=== PATIENT | male | born 1950 | race Caucasian/White ===

== ENCOUNTER 2018-01-22 03:14 | Observation (INO) ==
[2018-01-22] MEDS ORDERED: Aspirin 81 MG TAB.CHEW PO ONE (03:19)
[2018-01-22 03:39] LABS: Basophils # 0.1 K/mcL (0.0-0.2); Basophils % 0.4 %; Eosinophils # 0.1 K/mcL (0.0-0.6); Eosinophils % 0.9 %; Hematocrit 44.2 % (37.5-50.1); Immature Granulocytes % 0.3 % (0-4); Lymphocytes # 1.8 K/mcL (0.6-4.6); Lymphocytes % 13.1 %; Mean Corpuscular HGB Conc 33.9 g/dL (31.6-35.5); Mean Corpuscular Hemoglobin 29.1 pg (28.0-33.3); Mean Corpuscular Volume 85.8 fL (83.0-100.0); Mean Platelet Volume 9.6 fL (9.4-12.4); Monocytes % 7.2 %; Neutrophils # 10.6 K/mcL (1.6-8.9); Platelet Count 202 K/mcL (140-400); Red Blood Count 5.15 M/mcL (4.19-5.50); Red Cell Distribution Width 13.3 % (11.5-14.5); Segmented Neutrophils % 78.1 %
[2018-01-22 04:01] LABS: Troponin I < 0.03 ng/mL (< 0.04)
[2018-01-22 04:02] LABS: Alanine Aminotransferase 7 Units/L (7-52); Albumin 4.4 g/dL (3.5-5.7); Albumin/Globulin Ratio 1.8 (1.1-2.2); Alkaline Phosphatase 50 Units/L (34-104); Aspartate Amino Transferase 10 Units/L (13-39); BUN/Creatinine Ratio 12 (6-26); Bilirubin,Direct 0.2 mg/dL (0.0-0.2); Bilirubin,Indirect 0.3 mg/dL (0.0-1.2); Bilirubin,Total 0.5 mg/dL (0.3-1.0); Blood Urea Nitrogen 11 mg/dL (8-23); Calcium 9.4 mg/dL (8.6-10.3); Carbon Dioxide 24 mEq/L (23-29); Chloride 106 mEq/L (98-107); Globulin 2.5 g/dL (2.4-3.5); Glucose 119 mg/dL (70-105); Lipase 10 Units/L (11-82); Osmolality,Calculated 283 (280-300); Potassium 4.3 mEq/L (3.5-5.1); Sodium 136 mEq/L (136-145); Total Protein 6.9 g/dL (6.4-8.9); eGFR For Non-African Americans > 60 (> 60)
--- NOTE | 2018-01-22 04:06 | Emergency Department Note ---
Disposition Clinical Impression: Shortness of breath, Left flank pain Chest pain Qualifiers: Chest pain type: unspecified Qualified Code(s): R07.9 - Chest pain, unspecified Disposition: Admitted As Inpatient Condition: Good Referrals: NONE,PCP [Primary Care Provider] - Forms: ED Satisfaction Letter General Adult HPI - General Chief complaint: ED Chest Pain Stated complaint: Chest pain, SOB, Abd pain Time Seen by Provider: 01/22/18 03:17 Source: patient, family Limitations: no limitations Nursing Notes Reviewed: Yes Vital Signs Reviewed: Yes - History of Present Illness HPI Narrative: 67-year-old male with significant past medical history of hypertension, hyperlipidemia and diabetes presenting to the emergency department chief complaint of chest pain, shortness of breath and left flank pain. Patient states he was recently admitted at [facility] for cardiac workup. He had EKGs and stress test completed but no catheterization. Patient states since he was discharged he has had multiple episodes of chest pain and shortness of breath. This evening the episodes started around 8 PM. He describes substernal chest pressure. Does not radiate. Does cause nausea and diaphoresis. Patient denies taking any medications for this at home. Patient denies any previous cardiac history or stents. Denies being on any anticoagulation. Patient states over the past few months he has also had increasing shortness of breath. Has been worsening acutely over the past 1-2 weeks. Denies any history of COPD or asthma. Patient also states he is having left flank pain. He states he feels something hard there. He feels that his abdomen is more distended than normal. Denies any vomiting or diarrhea. Pain Scale: 8 - Related Data Allergies Allergy/AdvReac Type Severity Reaction Status Date / Time No Known Allergies Allergy Verified 01/22/18 03:33 All systems ED: reviewed and negative except as stated. Constitutional: Reports: fever (Subjective). Denies: chills Eyes: Reports: as per HPI ENT ED: Reports: as per HPI Cardiovascular: Reports: chest pain. Denies: palpitations, dyspnea on exertion Respiratory: Reports: cough, dyspnea. Denies: wheezes, hemoptysis Gastrointestinal: Reports: abdominal pain. Denies: vomiting, diarrhea Genitourinary: Reports: as per HPI Musculoskeletal: Reports: as per HPI Integumentary: Reports: as per HPI Neurological: Denies: weakness, numbness, paresthesias Psychiatric: Reports: as per HPI Endocrine: Reports: as per HPI Hematological/Lymphatic: Reports: as per HPI Allergic/Immunologic: Reports: as per HPI Past Medical History - Past Medical History Attestation: Yes The following information was validated with the patient. Medical history: Reports: CVA, diabetes, hyperlipidemia, hypertension Psychiatric history: Reports: no psych history - Social History Smoking Status: Former smoker Alcohol use: Reports: none Drug use: Reports: none Physical Exam - General Limitations: no limitations General appearance: alert, in no apparent distress - Head Head exam: atraumatic, normocephalic, normal inspection - Eye Eye exam: Present: normal appearance. Absent: scleral icterus, conjunctival injection - ENT ENT exam: normal exam, mucous membranes moist - Neck Neck exam: Present: normal inspection, full ROM. Absent: tenderness, meningismus - Chest Chest inspection: Present: normal inspection, symmetric chest wall rise. Absent : tenderness, rash - Respiratory Respiratory exam: Present: other (Coarse breath sounds throughout) - Cardiovascular Cardiovascular exam: Present: regular rate, normal rhythm, normal heart sounds - Abdominal Exam Abdominal exam: Present: soft, Non-Tender. Absent: guarding, rebound, rigidity - Extremities Exam Extremities exam: Present: normal inspection, full ROM - Neurological Exam Neurological exam: Present: alert, oriented X3 - Psychiatric Psychiatric exam: Present: normal affect, normal mood - Skin Skin exam: Present: warm, intact Course Course Narrative: 67-year-old male presenting with chest pain and shortness of breath. Patient is complaining of left flank pain. On physical exam patient does have a hard and mobile area in the left flank but otherwise no abnormalities. Physical exam otherwise benign. He is alert and oriented 3 in the room in stable vital signs. We will obtain a chest pain workup including CBC, CMP, lipase, troponin , EKG and chest x-ray. Due to patient's abdominal pain was also obtain a CT of abdomen and pelvis. Disposition pending results. Patient agrees with this plan. - Reevaluation(s) Reevaluation #1: Patient laboratory analysis benign. Chest x-ray within normal limits. Patient given a nitroglycerin trial. After 2 sublingual nitros chest pressure completely resolved. Upon ambulation of the patient became hypoxic to 91% and then when he got to the room he dropped down to 87%. Patient has no history of asthma or COPD. Due to patient's hypoxia and chest pain we will admit him for further evaluation. Patient is alert and oriented 3 in the room with stable vital signs. Patient agrees with this plan. I spoke with the hospitalist inspection supervisor Dr. Allen to agrees to accept the patient at this time. Vital Signs Temperature 100.1 F H 01/22/18 03:18 Pulse Rate 93 01/22/18 03:18 Respiratory Rate 26 01/22/18 03:18 Blood Pressure 158/92 01/22/18 03:18 O2 Sat by Pulse Oximetry 92 01/22/18 03:18 Temperature 100.1 F H 01/22/18 03:18 Pulse Rate 99 01/22/18 05:03 Respiratory Rate 19 01/22/18 05:03 Blood Pressure 112/91 01/22/18 05:03 O2 Sat by Pulse Oximetry 92 01/22/18 05:03 Oxygen Delivery Oxygen Delivery Nasal Cannula Medical Decision Making - Lab Data Result diagrams: 01/22/18 03:30 01/22/18 03:30 Lab Results 01/22/18 01/22/18 01/22/18 Range/Units 03:21 03:30 03:30 WBC 13.6 H (4.3-11.1) K/mcL RBC 5.15 (4.19-5.50) M/mcL Hgb 15.0 (12.9-16.9) g/dL Hct 44.2 (37.5-50.1) % MCV 85.8 (83.0-100.0) fL MCH 29.1 (28.0-33.3) pg MCHC 33.9 (31.6-35.5) g/dL RDW 13.3 (11.5-14.5) % Plt Count 202 (140-400) K/mcL MPV 9.6 (9.4-12.4) fL Immature Gran % 0.3 (0-4) % Seg Neutrophils % 78.1 % Lymphocytes % 13.1 % Monocytes % 7.2 % Eosinophils % 0.9 % Basophils % 0.4 % Neutrophils # 10.6 H (1.6-8.9) K/mcL Lymphocytes # 1.8 (0.6-4.6) K/mcL Monocytes # 1.0 (0.0-1.3) K/mcL Eosinophils # 0.1 (0.0-0.6) K/mcL Basophils # 0.1 (0.0-0.2) K/mcL Sodium 136 (136-145) mEq/L Potassium 4.3 (3.5-5.1) mEq/L Chloride 106 (98-107) mEq/L Carbon Dioxide 24 (23-29) mEq/L BUN 11 (8-23) mg/dL Creatinine 0.92 (0.70-1.30) mg/dL Est GFR ( Amer) > 60 (> 60) Est GFR (Non-Af Amer) > 60 (> 60) BUN/Creatinine Ratio 12 (6-26) Glucose 119 H (70-105) mg/dL Calculated Osmolality 283 (280-300) Calcium 9.4 (8.6-10.3) mg/dL Total Bilirubin 0.5 (0.3-1.0) mg/dL Direct Bilirubin 0.2 (0.0-0.2) mg/dL Indirect Bilirubin 0.3 (0.0-1.2) mg/dL AST 10 L (13-39) Units/L ALT 7 (7-52) Units/L Alkaline Phosphatase 50 (34-104) Units/L Troponin I < 0.03 (< 0.04) ng/mL B-Natriuretic Peptide 102 H (Less than 100) pg/mL Serum Total Protein 6.9 (6.4-8.9) g/dL Albumin 4.4 (3.5-5.7) g/dL Globulin 2.5 (2.4-3.5) g/dL Albumin/Globulin Ratio 1.8 (1.1-2.2) Lipase 10 L (11-82) Units/L - EKG Data EKG #1 EKG attestation: Yes I reviewed and interpreted this EKG. EKG results narrative: Sinus rhythm. 91 bpm. SD interval 153, QRS 96, QTC 438. No signs of acute ST segment elevation or ischemia.
[2018-01-22] MEDS: Nitroglycerin 0.4 MG TAB.SUBL SL PRN ×2 (04:49→04:55)
--- NOTE | 2018-01-22 05:40 | Emergency Department Note ---
Disposition Clinical Impression: Shortness of breath, Left flank pain Chest pain Qualifiers: Chest pain type: unspecified Qualified Code(s): R07.9 - Chest pain, unspecified Disposition: Admitted As Inpatient Condition: Good General Adult HPI - General Chief complaint: ED Chest Pain Stated complaint: Chest pain, SOB, Abd pain Time Seen by Provider: 01/22/18 03:17 Source: patient, family Mode of arrival: wheelchair Limitations: no limitations Nursing Notes Reviewed: Yes Vital Signs Reviewed: Yes - History of Present Illness Pain Scale: 8 - Related Data Allergies Allergy/AdvReac Type Severity Reaction Status Date / Time No Known Allergies Allergy Verified 01/22/18 03:33 Constitutional: Reports: fever (Subjective). Denies: chills Eyes: Reports: as per HPI ENT ED: Reports: as per HPI Cardiovascular: Reports: chest pain. Denies: palpitations, dyspnea on exertion Respiratory: Reports: cough, dyspnea. Denies: wheezes, hemoptysis Gastrointestinal: Reports: abdominal pain. Denies: vomiting, diarrhea Genitourinary: Reports: as per HPI Musculoskeletal: Reports: as per HPI Integumentary: Reports: as per HPI Neurological: Denies: weakness, numbness, paresthesias Psychiatric: Reports: as per HPI Endocrine: Reports: as per HPI Hematological/Lymphatic: Reports: as per HPI Allergic/Immunologic: Reports: as per HPI Past Medical History - Past Medical History Medical history: Reports: CVA, diabetes, hyperlipidemia, hypertension Psychiatric history: Reports: no psych history - Social History Smoking Status: Former smoker Alcohol use: Reports: none Drug use: Reports: none Physical Exam - General Limitations: no limitations General appearance: alert, in no apparent distress Course Vital Signs Temperature 100.1 F H 01/22/18 03:18 Pulse Rate 93 01/22/18 03:18 Respiratory Rate 26 01/22/18 03:18 Blood Pressure 158/92 01/22/18 03:18 O2 Sat by Pulse Oximetry 92 01/22/18 03:18 Temperature 100.1 F H 01/22/18 03:18 Pulse Rate 99 01/22/18 05:03 Respiratory Rate 19 01/22/18 05:03 Blood Pressure 112/91 01/22/18 05:03 O2 Sat by Pulse Oximetry 92 01/22/18 05:03 Oxygen Delivery Oxygen Delivery Nasal Cannula Medical Decision Making - Lab Data Lab results reviewed: Yes I reviewed the patient's lab results. Result diagrams: 01/22/18 03:30 01/22/18 03:30 Lab Results 01/22/18 01/22/18 01/22/18 Range/Units 03:21 03:30 03:30 WBC 13.6 H (4.3-11.1) K/mcL RBC 5.15 (4.19-5.50) M/mcL Hgb 15.0 (12.9-16.9) g/dL Hct 44.2 (37.5-50.1) % MCV 85.8 (83.0-100.0) fL MCH 29.1 (28.0-33.3) pg MCHC 33.9 (31.6-35.5) g/dL RDW 13.3 (11.5-14.5) % Plt Count 202 (140-400) K/mcL MPV 9.6 (9.4-12.4) fL Immature Gran % 0.3 (0-4) % Seg Neutrophils % 78.1 % Lymphocytes % 13.1 % Monocytes % 7.2 % Eosinophils % 0.9 % Basophils % 0.4 % Neutrophils # 10.6 H (1.6-8.9) K/mcL Lymphocytes # 1.8 (0.6-4.6) K/mcL Monocytes # 1.0 (0.0-1.3) K/mcL Eosinophils # 0.1 (0.0-0.6) K/mcL Basophils # 0.1 (0.0-0.2) K/mcL Sodium 136 (136-145) mEq/L Potassium 4.3 (3.5-5.1) mEq/L Chloride 106 (98-107) mEq/L Carbon Dioxide 24 (23-29) mEq/L BUN 11 (8-23) mg/dL Creatinine 0.92 (0.70-1.30) mg/dL Est GFR ( Amer) > 60 (> 60) Est GFR (Non-Af Amer) > 60 (> 60) BUN/Creatinine Ratio 12 (6-26) Glucose 119 H (70-105) mg/dL Calculated Osmolality 283 (280-300) Calcium 9.4 (8.6-10.3) mg/dL Total Bilirubin 0.5 (0.3-1.0) mg/dL Direct Bilirubin 0.2 (0.0-0.2) mg/dL Indirect Bilirubin 0.3 (0.0-1.2) mg/dL AST 10 L (13-39) Units/L ALT 7 (7-52) Units/L Alkaline Phosphatase 50 (34-104) Units/L Troponin I < 0.03 (< 0.04) ng/mL B-Natriuretic Peptide 102 H (Less than 100) pg/mL Serum Total Protein 6.9 (6.4-8.9) g/dL Albumin 4.4 (3.5-5.7) g/dL Globulin 2.5 (2.4-3.5) g/dL Albumin/Globulin Ratio 1.8 (1.1-2.2) Lipase 10 L (11-82) Units/L - Radiology Data Radiology results reviewed: Yes I reviewed the patient's radiology results. Chest X-Ray 01/22/18 03:20 IMPRESSION: 1. No acute cardiopulmonary disease. D/ / Rene Winchester MD / Rene Winchester MD Interpreting Provider: Rene Winchester MD Abdomen/Pelvis CT 01/22/18 03:21 IMPRESSION: 1. No acute findings of the abdomen and pelvis identified D/ / Rene Winchester MD / Rene Winchester MD Interpreting Provider: Rene Winchester MD - EKG Data EKG #1 EKG attestation: Yes I reviewed and interpreted this EKG. EKG results narrative: EKG shows a normal sinus rhythm with ventricular rate of 91. No acute ST segment elevation or depression. No arrhythmia or ectopy. Attestation Statement - Attestation Attestation: I, Galen Rodrigues MD, personally evaluated this patient and discussed their management with the resident physician. I reviewed the resident's note and agree with the documented findings, medical decision making, and plan of care. 67-year-old male presents to the emergency department with a complaint of having intermittent episodes of chest pain and shortness breath over the past several weeks. He was admitted for this at another facility about 2 and half or 3 weeks ago. Patient and reports that the emergency department physician felt he needed a heart catheter over the elementary school social worker did not seem to want to do the heart catheter because of some issue with Medicare. They were very unhappy with their treatment at the other facility. He also complains of some left sided abdominal pain. Pain seems to start in the left lateral mid to upper abdomen and then radiates across the upper abdomen and up into the chest. He describes the chest pain as a heaviness and pressure on his chest. He complains of cough and shortness of breath. No radiation of pain to the neck or jaw. No radiation down the arms. On examination patient is a well-developed obese elderly male in no acute distress. He does appear very anxious and is somewhat tachypneic. He is alert and oriented 3. There is no cyanosis or diaphoresis. Chest is nontender to palpation. Breath sounds are decreased bilaterally with a few scattered late expiratory wheezes. No rales noted. Heart regular rate and rhythm. Abdomen soft with normal bowel sounds. There is some left upper quadrant and left lateral abdominal tenderness on direct palpation. Labs reviewed. Troponin normal. No acute changes on EKG. Chest x-ray negative. CT the abdomen and pelvis was obtained and was also negative. The hospitalist, Dr. Allen, was consulted and accepted admission of the patient.
--- NOTE | 2018-01-22 05:56 | Internal Med History&Physical ---
Date of Encounter: 01/22/18 Time of Encounter: 05:56 Internal Medicine - H&P: HPI Chief complaint: chest tightness Admitted From: Home Plans for Post Hospital Care: Home History of present illness: Mr. Olmedo is a 67 year old man with a history of diabetes and hypertension who is a former smoker reportedly quitting 15 years ago who presents with a complaint of chest tightness. Reportedly this symptom has been present for a number of months and is of increasing severity and frequency as per his recently seen at [facility] 2 weeks ago where he underwent stress testing that is said to have been unremarkable and was to undergo left heart cath but this was canceled reportedly due to some Medicare issues. He describes his discomfort as a significant tightness in his mid chest associated with dyspnea and a sensation of doom but states that the pain and discomfort seems to stem from his left flank and radiates upwards. He denies any association with physical exertion and as per his it occurs even while sitting down at rest. More recently last night she found him lying down on the floor clenching his chest in significant pain for which reason she brought him to the ER. On arrival here his vital signs were within normal limits although he had a temperature of 100.1 degrees, he denies feeling feverish or having chills at home. He occasionally has associated cough that is nonproductive. He denies epigastralgia, nausea and vomiting. He denies a history of myocardial infarction but had an ischemic stroke 10 years ago and has no residual neurologic deficits. Information provided by the is that the pain episodes have been increasing in frequency and severity and he becomes pale and lightheaded when he has a chest tightness and it lasts for a number of minutes and resolves with moments of calm and not moving. He is unable to associate any triggering factors. His initial troponin here was negative and chest x-ray unremarkable; and abdomen CT scan was also done due to the complaint of the pain originating from the left flank however this showed no acute anomalies. Past Med Surg Social Fam HX - Past Medical History Medical history: CVA, diabetes, hyperlipidemia, hypertension Psychiatric history: no psych history - Social History Smoking Status: Former smoker Alcohol use: none Drug use: none Internal Medicine - H&P: Meds Amlodipine Besylate [Amlodipine Besylate] 10 mg PO DAILY 01/22/18 [History] Citalopram Hydrobromide [Citalopram HBr] 40 mg PO DAILY 01/22/18 [History] CloNIDine 0.1 mg PO BID 01/22/18 [History] Losartan Potassium [Cozaar] 100 mg PO DAILY 01/22/18 [History] Metformin HCl 1,000 mg PO DAILY 01/22/18 [History] Simvastatin [Zocor] 40 mg PO DAILY 01/22/18 [History] 3 Allergy/AdvReac Type Severity Reaction Status Date / Time No Known Allergies Allergy Verified 01/22/18 03:33 All Systems PM: A 10-system review of systems was performed and is negative for pertinent findings except as documented above in the HPI. - Constitutional Vitals: Temp Pulse Resp BP Pulse Ox 100.1 F H 99 19 112/91 92 01/22/18 03:18 01/22/18 05:03 01/22/18 05:03 01/22/18 05:03 01/22/18 05:03 Exam: Vitals: Reviewed General: Well-developed male lying comfortably in bed in no acute distress Skin: Her months supple HEENT: Moist mucous membranes. No conjunctivae pallor. Neck: No lymphadenopathy. No JVD. No carotid bruits. No palpable thyroid. Chest: Normal thoracic expansion. Normal breath sounds. Clear to auscultation. Heart: Normal S1 & S2; rhythmic. No rubs or murmurs. Abdomen: Non-distended, soft and non-tender to palpation. No peritoneal reaction. Extremities: No clubbing, cyanosis or edema. No calf tenderness. Normal distal pulses. Neurological: Awake, alert and oriented to person, place and time. No focal deficits. Psych: Affect appropriate. Internal Med - H&P Results - Labs CBC & Chem 7: 01/22/18 03:30 01/22/18 03:30 - Assessment and plan (1) Chest pain Current Visit: Yes Status: Acute Assessment and plan: The patient's pain description is somewhat atypical noting that while he complains of chest tightness, he complains of left flank pain as well. The pain has been increasing in severity and frequency, associated with lightheadedness and dyspnea when it occurs. He does have risk factors for CAD based on age, comorbidities and prior smoking history and his current HEART score is moderate warranting observation. His chest pain seems to have improved with 2 NTG tablets. There were no pleuroparenchymal lung processes identified on CT nor gastrointestinal either. He had a stress test done 2 weeks ago and I am not privy to the official findings; this needs to be requested. -Will consult cardiology for evaluation to determine if he will benefit from catheterization since consideration was given at the outside hospital. -Will monitor on telemetry; obtain 1 more troponin level and EKG. -Will place on ASA 81mg to continue after receiving loading dose. -TTE for structural evaluation for now. Qualifiers: Chest pain type: unspecified Qualified Code(s): R07.9 - Chest pain, unspecified (2) Leukocytosis Current Visit: Yes Status: Acute Assessment and plan: Unclear etiology. There are currently no clinical or radiographic signs of infection evident. No prior CBC in our system from which to compare. For now it should be monitored and trended; close observation for any new clinical signs and symptoms. Qualifiers: Leukocytosis type: unspecified Qualified Code(s): D72.829 - Elevated white blood cell count, unspecified (3) Diabetes Current Visit: Yes Status: Chronic Assessment and plan: Will place on diabetic diet and insulin sliding scale for now. Home medications yet to be confirmed. 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 Will resume home anti-hypertensives once confirmed. Qualifiers: Hypertension type: essential hypertension Qualified Code(s): I10 - Essential (primary) hypertension (5) DVT prophylaxis Current Visit: Yes Status: Acute Assessment and plan: SubQ heparin - Time Spent With Patient Total time spent is greater than 50% in coordination of care (as documented) at patient's floor/unit and/or counseling patient: 25 - 35 minutes
[2018-01-22] MEDS: *HR* Heparin 5,000 UNIT/ML VIAL SQ SCH ×2 (06:09→13:34)
[2018-01-22] MEDS ORDERED: amLODIPine 5 MG TABLET PO SCH (09:00)
[2018-01-22] MEDS ORDERED: Aspirin 81 MG TAB.CHEW PO SCH (09:00)
[2018-01-22] MEDS ORDERED: cloNIDine HCl 0.1 MG TABLET PO SCH (09:00)
--- NOTE | 2018-01-22 09:16 | Cardiology Consult Note ---
Date of Encounter: 01/22/18 Time of Encounter: 08:30 Assessment and Plan (1) Chest pain Current Visit: Yes Status: Acute Per cardiology: -Presents with atypical symptoms. -Chest tightness at rest, denies exertional symptoms. Able to push mow grass without symptoms. -Denies current chest tightness. -ECG with no acute ischemic changes noted. -Troponin negativ [facility], negative x2 [facility]. -Reports recent TTE and stress at [facility]. -ON asa, statin. -Will obtain records from [facility]. -Can consider [facility], possible outpatient, however patient with leukocytosis, fevers, atypical symptoms. Qualifiers: Chest pain type: unspecified Qualified Code(s): R07.9 - Chest pain, unspecified (2) Leukocytosis Current Visit: Yes Status: Acute Per cardiology: -WBC elevated 13.6. -Reports fevers, productive cough at home. -T max [facility] 100.1. -Management per primary service. Qualifiers: Leukocytosis type: unspecified Qualified Code(s): D72.829 - Elevated white blood cell count, unspecified Discussion w patient/family: The assessment and plan as outlined above was discussed with the patient who expressed understanding and agreement. All questions were answered. Thank you for involving us in the care of your patient. Please call with any questions. Discussed and reviewed with . History of Present Illness Consult date: 01/22/18 Requesting physician: Meghna Merino Consult reason: chest pain, recent negative stress test Chief complaint: chest tightness, left flank pain History of present illness: Mr. Olmedo is a 67 year old male with a relevant past medical history of HTN, CVA, HLD, DM, previous smoker quit 15 years ago who presented to [facility] with complaints of chest tightness. Patient states chest tightness occurs at rest. Denies exertional chest pain/tightness. Reports worsening shortness of breath. Patient also reports left flank pain. Reports productive cough, fever chills. Denies current chest pain/tightness. Patient reports was recently at [facility] and per patient had negative stress test and echo. Past Med Surg Social Fam HX - Past Medical History Attestation: Yes The following information was validated with the patient. Source: patient, old records reviewed Medical history: CVA, diabetes, hyperlipidemia, hypertension Psychiatric history: no psych history - Social History Smoking Status: Former smoker Alcohol use: none Drug use: none - Family History Father Adopted: [place]: DENISE Family Member Ethnicity: Non- Living Status: Age at : 87 Cause of : CVA Hx Family Cardiac Disorders: No Hx Family Respiratory Disorders: Yes (BLACK LUNG) Hx Family Cancer: No Hx Family GI Disorders: No Hx Family Genitourinary Disorders: No Hx Family Endocrine Disorder: No Hx Family Musculoskeletal Disorders: No Hx Family Neuromuscular Disorders: No Hx Family Neurologic Disorders: Yes (CVA) Hx Family HEENT Disorders: No Hx Family Autoimmune Disorders: No Hx Family Reproductive Disorders: No Hx Family Psychosocial Disorders: No Hx Family Medical Disorders: No Medications and Allergies Amlodipine Besylate [Amlodipine Besylate] 10 mg PO DAILY 01/22/18 [History] Citalopram Hydrobromide [Citalopram HBr] 40 mg PO DAILY 01/22/18 [History] CloNIDine 0.1 mg PO BID 01/22/18 [History] Losartan Potassium [Cozaar] 100 mg PO DAILY 01/22/18 [History] Metformin HCl 1,000 mg PO DAILY 01/22/18 [History] Simvastatin [Zocor] 40 mg PO DAILY 01/22/18 [History] 3 Allergy/AdvReac Type Severity Reaction Status Date / Time No Known Allergies Allergy Verified 01/22/18 03:33 All Systems Review: The remainder of the systems were reviewed and are negative - Constitutional Constitutional: chills, fever(s) - Cardiovascular Cardiovascular: as per HPI, chest pain at rest, dyspnea on exertion - Respiratory Respiratory: cough Physical Examination Vital Signs, Last 4 Hours Temp Pulse Resp BP Pulse Ox 01/22/18 07:07 98.5 F 78 15 142/70 93 01/22/18 06:05 77 18 118/68 95 General: Conversant, No Apparent Distress HEENT: Atraumatic, Normocephaly, Mucus Membranes Moist Neck: No JVD, Normal carotid pulses Cardiac: Reg Rate and Rhythm, Normal S1 and S2, No Murmur Lungs: Normal Breath Sounds, No Wheeze, Rales, Rhonchi Neuro: Alert and responsive, No focal deficits noted Abdomen: Soft, Non-Tender Skin: No rashes noted on visualized skin Musculoskeletal: No Chest Wall Tenderness Extremities: No Clubbing, No Cyanosis, No Edema, Normal Pulses Results 01/22/18 03:30 01/22/18 03:30 Impressions Chest X-Ray 01/22/18 03:20 IMPRESSION: 1. No acute cardiopulmonary disease. D/ / Rene Winchester MD / Rene Winchester MD Interpreting Provider: Rene Winchester MD Abdomen/Pelvis CT 01/22/18 03:21 IMPRESSION: 1. No acute findings of the abdomen and pelvis identified D/ / Rene Winchester MD / Rene Winchester MD Interpreting Provider: Rene Winchester MD Active Medications Amlodipine Besylate (Norvasc) 10 mg PO DAILY [facility] Stop: 07/24/18 09:01 Aspirin (Aspirin) 81 mg PO DAILY [facility] Stop: 07/24/18 09:01 Citalopram Hydrobromide (Celexa) 40 mg PO DAILY [facility] Stop: 07/24/18 09:01 Clonidine HCl (Clonidine Hcl) 0.1 mg PO BID [facility] Stop: 07/24/18 09:01 Heparin Sodium (Porcine) (Heparin) 5,000 unit SQ Q8HCO [facility] Stop: 07/24/18 06:01 Last Admin: 01/22/18 06:09 Dose: 5,000 unit Insulin Human Lispro (Humalog) 0 units SQ TIDAC [facility] PRN Reason: Protocol Stop: 07/24/18 07:31 Insulin Human Lispro (Humalog) 0 units SQ HS [facility] PRN Reason: Protocol Stop: 07/24/18 21:01 Losartan Potassium (Cozaar) 100 mg PO DAILY [facility] Stop: 07/24/18 09:01 Nitroglycerin (Nitroglycerin) 0.4 mg SL Q5MIN PRN PRN Reason: Chest Pain Stop: 07/24/18 04:29 Last Admin: 01/22/18 04:55 Dose: 0.4 mg Simvastatin (Zocor) 40 mg PO DAILY [facility] PRN Reason: Protocol Stop: 07/24/18 09:01 Laboratory Tests 01/22/18 01/22/18 03:30 03:30 WBC 13.6 H Hgb 15.0 Creatinine 0.92 Troponin I < 0.03 - Imaging and Cardiology Chest Xray: report reviewed - EKG Interpretation EKG results cardiology: personally reviewed (ECG with SR, HR 91.), other ( Telemetry reviewed with average HR previous 12 hours noted to be 74, SR. PVCs and PACs noted.) Consult Discharge Plan - Plan Referrals: NONE,PCP [Primary Care Provider] -
[2018-01-22 09:40] LABS: Chol/HDL Ratio 3.1 (0-4.9)
[2018-01-22 10:14] LABS: Estimated Average Glucose 117 mg/dl; Hemoglobin A1C 5.7 %
[2018-01-22] MEDS: Insulin LISPRO 300 UNITS/3 ML VIAL SQ SCH ×2 (10:39→13:02)
[2018-01-22] MEDS ORDERED: Acetaminophen 325 MG TABLET PO PRN (11:41)
--- NOTE | 2018-01-22 14:41 | Discharge Summary ---
Date of Encounter: 01/22/18 Time of Encounter: 13:15 - Discharge Diagnosis (1) Chest pain Priority: Primary Status: Acute Assessment and Plan: Pt presents with atypical chest pressure that he has had for 2 months. The pain has been increasing in severity and frequency over the last 2 weeks, associated with lightheadedness and dyspnea when it occurs. Patient also reports that he has productive cough with white sputum for 1 month and subjective fevers. Pt reports pain in LLQ that "shoots up under my ribs" on the left side. Pain is not reproducible and he notices no pattern with when the pain occurs. His chest pain seems to have improved with 2 NTG tablets in the ER. -Cardiology was consulted, they have signed off and recommend no further treatment. -Continue ASA 81mg po daily and telemetry -TTE shows LVEF of 55-60% with mild LV DD no significant. Chest x-ray is negative, but coupled with productive cough, subjective fevers, leukocytosis, is suggestive of respiratory etiology. Pt is a former smoker, quit about 15 years ago. Denies COPD diagnosis or chronic bronchitis, etc. Patient also reports that he has a lot of stress at home, "I worry about my granddaughter. My and I argue about it.", suggesting also etiology could be anxiety. Recommend that pt follow up with PCP after discharge for possible diagnosis of COPD. Qualifiers: Chest pain type: unspecified Qualified Code(s): R07.9 - Chest pain, unspecified (2) Diabetes Priority: Secondary Status: Chronic Assessment and Plan: A1c 5.7%. Well controlled. Continue home medications, accucheck regimen, and diabetic diet. Qualifiers: Diabetes mellitus type: type 2 Diabetes mellitus jail insulin use: without jail use Diabetes mellitus complication status: without complication Qualified Code(s): E11.9 - Type 2 diabetes mellitus without complications (3) Hypertension Priority: Secondary Status: Chronic Assessment and Plan: BP currently at goal. Continue home medications. Qualifiers: Hypertension type: essential hypertension Qualified Code(s): I10 - Essential (primary) hypertension (4) DVT prophylaxis Priority: Secondary Status: Acute Assessment and Plan: SubQ heparin, pt is ambulatory in the room. (5) Leukocytosis Priority: Secondary Status: Acute Assessment and Plan: Unclear etiology. There are currently no clinical or radiographic signs of infection evident. Pt does report subjective fevers at home, however, he states that he never actually took his temperature at home. No prior CBC in our system from which to compare. Repeat CBC; leukocytosis has resolved. Pt remains afebrile, no tachycardia, pt is normotensive. Qualifiers: Leukocytosis type: unspecified Qualified Code(s): D72.829 - Elevated white blood cell count, unspecified Hospital course: Mr. Olmedo is a 67 year old male Discharge discussed with: patient - Time Spent with Patient Total time spent providing and/or coordinating discharge services: Less than 30 minutes - Discharge Medications Home Medications: Amlodipine Besylate 10 mg PO DAILY 01/22/18 [History] Aspirin 81 mg PO DAILY tab.chew 01/22/18 [Rx] Citalopram Hydrobromide [Citalopram HBr] 40 mg PO DAILY 01/22/18 [History] Losartan Potassium [Cozaar] 100 mg PO DAILY 01/22/18 [History] Metformin HCl [Glucophage] 1,000 mg PO BID 01/22/18 [History] Simvastatin [Zocor] 40 mg PO DAILY 01/22/18 [History] cloNIDine HCl [CloNIDine HCl] 0.1 mg PO BID 01/22/18 [History] Allergies/Adverse Reactions: 3 Allergy/AdvReac Type Severity Reaction Status Date / Time No Known Allergies Allergy Verified 01/22/18 14:17 Date of admission: 01/22/18 05:29 Primary care physician: PCP NONE Consults: 01/22/18 05:46 Consult to Cardiology [CONS] Routine Comment: Consulting Provider: Cardiology Luz Maria Reason for Consult: 67 year old man with HTN and DM presenting with chest tightness of increasing frequency and severity associated with dyspnea. Seen at [facility] 2 weeks ago with a reportedly unremarkable stress test; report not available at this time. There was a reported intent for left heart cath but states issue with medicare. Comes in now with chest pain. Unremarkable EKG and initial troponin. Seems associated with LUQ and flank pain as well therefore difficult to delineate if precordial or not. Has risk factors. Call Completed: No Discharging clinician: Catalina Franz Anticipated date of discharge: 01/22/18 - Constitutional Vitals: Temp Pulse Resp BP Pulse Ox 98.8 F 72 16 154/82 98 01/22/18 11:30 01/22/18 11:30 01/22/18 11:30 01/22/18 11:30 01/22/18 11:30 General appearance: Present: cooperative, A&O X 3, pleasant, no acute distress, answers questions appropriately Exam: above. - Head Head exam: Present: atraumatic, normal inspection, normocephalic - Eye Eye exam: Present: normal appearance, conjuntiva pink, sclera anicteric - Neck Neck exam general surgery: Present: supple, trachea midline. Absent: lymphadenopathy, tenderness - Respiratory Respiratory exam: Present: CTAB. Absent: accessory muscle use, chest wall tenderness, rales, respiratory distress, rhonchi, wheezes - Cardiovascular Cardiovascular exam: Present: RRR, +S1, +S2. Absent: diastolic murmur, gallop, rubs, systolic murmur - GI/Abdominal GI/Abdominal exam: Present: normal bowel sounds, soft. Absent: distended, hepatomegaly, tenderness - Extremities Exam Extremities exam: Present: warm, radial pulses palpable and symmetrical. Absent : calf tenderness, cyanotic, pedal edema - Neurological Exam Neurological exam: Present: alert, oriented X3, no focal deficits. Absent: facial droop, speech deficit - Skin Skin exam: Present: dry, intact, normal color, warm. Absent: rash - Patient Status Disposition: Home, Self-Care Condition: Good Functional capacity at discharge: independent ambulation Overall status at discharge: patient is progressing back to baseline - Discharge Instructions Follow Up With: NONE,PCP [Primary Care Provider] - Additional Instructions: Follow up with your PCP in the next 3-5 days for a recheck. Take your medications as directed. Return to the ER as needed for any other problems or concerns, or if your symptoms return or worsen. Resume your normal medications and return to your normal diet and activties as tolerated. - Diet and Activity Activity: increase activity as tolerated Diet: low fat, low cholesterol
[2018-01-22 15:13] LABS: Basophils # 0.1 K/mcL (0.0-0.2); Basophils % 0.5 %; Eosinophils # 0.3 K/mcL (0.0-0.6); Eosinophils % 2.6 %; Hematocrit 42.2 % (37.5-50.1); Hemoglobin 13.9 g/dL (12.9-16.9); Immature Granulocytes % 0.2 % (0-4); Mean Corpuscular HGB Conc 32.9 g/dL (31.6-35.5); Mean Corpuscular Hemoglobin 28.2 pg (28.0-33.3); Mean Corpuscular Volume 85.6 fL (83.0-100.0); Mean Platelet Volume 9.2 fL (9.4-12.4); Monocytes # 0.9 K/mcL (0.0-1.3); Monocytes % 8.9 %; Neutrophils # 6.7 K/mcL (1.6-8.9); Platelet Count 201 K/mcL (140-400); Red Blood Count 4.93 M/mcL (4.19-5.50); Red Cell Distribution Width 13.7 % (11.5-14.5); Segmented Neutrophils % 67.8 %
[2018-01-22 15:46] VITALS: BP 136/73
[2018-01-22] MEDS ORDERED: Insulin LISPRO 300 UNITS/3 ML VIAL SQ SCH (21:00)
--- NOTE | 2018-01-25 11:40 | Electrocardiograph Report ---
[address] [address] Test Date: 2018-01-22 Pat Name: Adelfo Olmedo Department: EXAM4 Room: 3B Gender: M [employer]ed[employer] Reading Teacher: : 1950 Requested By: Juli Montoya Order Number: [id number] Reading MD: Colton Daugherty Measurements Intervals [place] Rate: 91 P: 85 ID: [id number] QRS: 87 QRSD: 96 T: -9 QT: 356 QTc: 438 Interpretive Statements Sinus rhythm Borderline right axis deviation Borderline T wave abnormalities Electronically Signed On 01-25-2018 11:38:43 EDT by Colton Daugherty
== END 2018-01-22 19:01 | disposition home or self-care (01) ==
LOC: 3BNU 03:14 → EMEROOARM 03:14 → 3BNU 06:16
PROVIDERS: ADMIT Family Medicine; ATTEND Family Medicine